=== PATIENT | male | born 1950 | race Caucasian/White ===

== ENCOUNTER 2021-04-09 12:08 | Emergency (ER) | payer MEDICARE, OTHER ==
--- NOTE | 2021-04-09 12:30 | EDM.PDOC ---
ED HPI GENERAL MEDICAL PROBLEM - General Chief Complaint: Chest Pain Stated Complaint: CHEST PAIN Time Seen by Provider: 04/09/21 12:23 Source of Information: Reports: Patient History Limitations: Reports: No Limitations - History of Present Illness INITIAL COMMENTS - FREE TEXT/NARRATIVE: 70 y/o M c/o an episode of CP on Friday where he was out walking while hunting. The CP was dull in nature an bilateral over the upper chest 09/13. The pain subsided with rest. He reports another episode earlier last week where he was mowing his lawn and developed CP and again had to stop and rest. The pain again subsided with rest. No heart hx. Denies feer, cough, chills, sweating, NV, abd pn, db extremity pn - Related Data Allergies Allergy/AdvReac Type Severity Reaction Status Date / Time No Known Allergies Allergy Verified 04/09/21 12:22 Home Meds: Home Meds Aspirin [Ecotrin] 81 mg PO DAILY 09/09/13 [History] Fenofibrate PO DAILY 09/09/13 [History] Ferrous Sulfate 324 mg PO BRK 09/09/13 [History] Fluticasone Propionate [Flonase] 1 spray NASBOTH DAILY 09/09/13 [History] Glimepiride PO DAILY 09/09/13 [History] Krill Oil 500 mg PO DAILY 09/09/13 [History] Lisinopril PO DAILY 09/09/13 [History] Milk Thistle 1,000 mg PO 09/09/13 [History] Multivitamin [Multi-Vitamin Daily] DAILY 09/09/13 [History] [place]-3 Fatty Acids [[place]-3] 1,000 mg PO DAILY 09/09/13 [History] allopurinoL [Allopurinol] PO DAILY 09/09/13 [History] atorvaSTATin Calcium [Atorvastatin Calcium] 20 mg PO .Q48HR 09/09/13 [History] ED ROS GENERAL - Review of Systems Review Of Systems: Comprehensive ROS is negative, except as noted in HPI. ED EXAM, GENERAL - Physical Exam Exam: See Below General Appearance: Alert, No Apparent Distress Nose: Normal Inspection, Normal Mucosa, No Blood Throat/Mouth: Normal Inspection, Normal Lips, Normal Teeth, Normal Gums, Normal Oropharynx, Normal Voice, No Airway Compromise Head: Atraumatic, Normocephalic Neck: Normal Inspection, Supple, Non-Tender, Full Range of Motion Respiratory/Chest: No Respiratory Distress, Lungs Clear, Normal Breath Sounds, No Accessory Muscle Use, Chest Non-Tender Cardiovascular: Normal Peripheral Pulses, Regular Rate, Rhythm, No Edema, No Gallop, No JVD, No Murmur, No Rub GI/Abdominal: Soft, Non-Tender Extremities: Normal Inspection, Normal Range of Motion, Non-Tender, Normal Capillary Refill, No Pedal Edema Neurological: Alert, Oriented, CN II-XII Intact, Normal Cognition, Normal Gait, Normal Reflexes, No Motor/Sensory Deficits Psychiatric: Normal Affect, Normal Mood Skin Exam: Warm, Dry, Intact, Normal Color, No Rash Course - Vital Signs Last Recorded V/S: Last Vital Signs Temp 97.5 F 04/09/21 12:23 Pulse 64 04/09/21 12:23 Resp 18 04/09/21 12:23 BP 168/87 H 04/09/21 12:23 Pulse Ox 95 04/09/21 12:23 - Orders/Labs/Meds Labs: Laboratory Tests 04/09/21 Range/Units 12:42 Troponin I High Sens 1192 H* (<=76) pg/mL Meds: Medications Discontinued Medications Generic Name Dose Route Start Last Admin Trade Name Freq PRN Reason Stop Dose Admin Aspirin 324 mg 04/09/21 12:51 04/09/21 12:59 Aspirin 81 Mg Tab.Chew PO 04/09/21 12:52 324 mg ONETIME ONE Administration - Re-Assessments/Exams Free Text/Narrative Re-Assessment/Exam: 04/09/21 13:32 I spoke with informatics application analyst Dr. Espinosa via one call at [facility] and he would like pt sent over for a heart cath. The hospitalist Dr. Nathan was consulted and is taking responsibility with pt at 1327 hours. Transfer process began at 1318. Departure - Departure Time of Disposition: 13:33 Disposition: DC/Tfer to Acute Hospital 02 Reason for Transfer *Q: Other Condition: Fair Clinical Impression: NSTEMI (non-ST elevated myocardial infarction) Referrals: PCP,None [Primary Care Provider] - Forms: ED Department Discharge, Interfacility Transfer [facility]
[2021-04-09] MEDS: Aspirin 81 MG Tab.Chew PO ONE (12:59)
== END 2021-04-09 14:05 ==
LOC: DL.ED 12:08
DX: I21.4 Non-ST elevation (NSTEMI) myocardial infarction (principal); Z79.82 Long term (current) use of aspirin
CPT/HCPCS: 36415; 84484; 93005; 99285; A9270

== ENCOUNTER 2021-07-18 05:26 | Day surgery (SDC) | payer MEDICARE, OTHER ==
[2021-07-18] MEDS ORDERED: Midazolam 1 MG/ML 2 ML SDV IV ONE ×7 (05:27→06:53)
[2021-07-18] MEDS ORDERED: fentaNYL 100 MCG/2 ML SDV IV ONE ×5 (05:27→07:02)
[2021-07-18] MEDS ORDERED: Sodium Chloride 0.9% 10 ML Syringe FLUSH SCH ×2 (06:00)
[2021-07-18] MEDS ORDERED: Dextrose 5%-0.45% NaCl 1,000 ML IV SCH (06:00)
[2021-07-18] MEDS ORDERED: fentaNYL 100 MCG/2 ML SDV ONE (06:01)
[2021-07-18] MEDS ORDERED: Midazolam 1 MG/ML 2 ML SDV ONE (06:01)
== END 2021-07-18 09:04 | disposition home or self-care (01) ==
LOC: DL.ENDO 05:26
PROVIDERS: ATTEND Internal Medicine Gastroenterology
DX: Z12.11 Encounter for screening for malignant neoplasm of colon (principal); K63.5 Polyp of colon; E66.09 Other obesity due to excess calories; E11.9 Type 2 diabetes mellitus without complications; I10 Essential (primary) hypertension; I25.10 Atherosclerotic heart disease of native coronary artery without angina pectoris; Z95.1 Presence of aortocoronary bypass graft; Z98.890 Other specified postprocedural states; Z01.812 Encounter for preprocedural laboratory examination; Z20.822 Contact with and (suspected) exposure to COVID-19; Z68.31 Body mass index [BMI] 31.0-31.9, adult
CPT/HCPCS: 45385; J2250; J3010; J7042; U0002

== ENCOUNTER 2025-03-29 05:31 | Day surgery (SDC) | payer MEDICARE, OTHER ==
[2025-03-29] MEDS ORDERED: Lactated Ringers 1,000 ML IV ONE (05:32)
[2025-03-29] MEDS ORDERED: Propofol 200 MG/20 ML SDV IV ONE (05:32)
[2025-03-29] MEDS: Lactated Ringers 1,000 ML IV SCH (06:24)
[2025-03-29] MEDS ORDERED: Propofol 200 MG/20 ML SDV ONE (07:39)
== END 2025-03-29 09:31 | disposition home or self-care (01) ==
LOC: DL.ENDO 05:31
PROVIDERS: ATTEND Internal Medicine Gastroenterology
DX: K29.50 Unspecified chronic gastritis without bleeding (principal); E78.5 Hyperlipidemia, unspecified; E11.9 Type 2 diabetes mellitus without complications; I25.10 Atherosclerotic heart disease of native coronary artery without angina pectoris; G47.30 Sleep apnea, unspecified; E66.09 Other obesity due to excess calories; Z68.31 Body mass index [BMI] 31.0-31.9, adult; Z79.84 Long term (current) use of oral hypoglycemic drugs; Z79.899 Other long term (current) drug therapy
CPT/HCPCS: 43239; 88305; J2704; J7120; S5010; 00731; 99100